=== PATIENT | female | born 1980 | race Hispanic/Latino ===

== ENCOUNTER 2018-07-12 10:38 | Emergency (ER) | payer BC ==
[~2018-07-12 10:38] MED LIST: AMPH25CA PO; GABA-529 PO; METO25TA6 PO
[2018-07-12] MEDS ORDERED: IOHEXOL 350 MG/ML 100ML INFUS..BTL IV ONE (11:16)
[2018-07-12] MEDS ORDERED: ONDANSETRON HCL 4 MG/2 ML VIAL ONE (11:21)
[2018-07-12] MEDS ORDERED: SODIUM CHLORIDE 0.9% 1000ML 1,000 ML IV ONE (11:21)
[2018-07-12] MEDS ORDERED: KETOROLAC TROMETHAMINE 15MG/ML ONE ×2 (11:21→12:21)
[2018-07-12 11:35] LABS: CREATININE 0.8 mg/dL (0.5-1.5); POTASSIUM 3.9 mmol/L (3.5-5.1)
[2018-07-12 11:40] LABS: BASOPHILS % (AUTO) 0.5 % (0.0-5.0); EOSINOPHILS % (AUTO) 0.6 % (0.0-8.0); HEMATOCRIT 37.8 % (36-48); MEAN CORPUSCULAR HGB CONC 33.4 g/dL (32.0-36.0); MEAN CORPUSCULAR VOLUME 86.7 fL (79-99); MONOCYTES % (AUTO) 5.4 % (3.0-13.0); NEUTROPHILS % (AUTO) 74.5 % (40.0-77.0); PLATELET COUNT (AUTO) 245 K/uL (130-400); RED BLOOD CELL COUNT(AUTO) 4.36 MIL/uL (4.00-5.50); RED CELL DISTRIBUTION WIDTH 13.9 % (11.0-15.5); WHITE BLOOD COUNT (AUTO) 8.6 K/uL (4.8-10.8)
[2018-07-12 11:42] LABS: APPEARANCE,URINE Clear (CLEAR); BILIRUBIN,URINE Negative (NEGATIVE); COLOR,URINE Yellow (YELLOW); GLUCOSE, URINE (UA) Negative (NEGATIVE); KETONES,URINE Negative (NEGATIVE); LEUKOCYTE ESTERASE ,URINE Small (NEGATIVE); NITRATE,URINE Negative (NEGATIVE); OCCULT BLOOD,URINE Trace (NEGATIVE); PROTEIN,URINE Negative (NEGATIVE); UROBILINOGEN,URINE 0.2 mg/dL (0.2-1.0)
[2018-07-12 11:44] LABS: ALBUMIN 3.5 g/dL (3.5-5.0); BILIRUBIN,TOTAL 0.4 mg/dL (0.2-1.0); TOTAL PROTEIN, SERUM 7.2 g/dL (6.0-8.3)
[2018-07-12 12:00] LABS: BACTERIA,URINE Rare /HPF (None Seen); RBC,URINE 0-1 /HPF (0-1); SQUAMOUS EPITHELIAL CELL,UR Rare /HPF (0-2)
[2018-07-12] MEDS ORDERED: DiphenhydrAMINE HCL 50 MG/ML VIAL ONE (12:20)
[2018-07-12] MEDS ORDERED: PROCHLORPERAZINE EDISYLATE 10 MG/2 ML VIAL ONE (12:21)
[2018-07-16] MEDS ORDERED: METO25TA6 PO (16:59)
[2018-07-16] MEDS ORDERED: PHENERGAN PO (16:59)
[2018-07-16] MEDS ORDERED: LOSA50TA25 PO (16:59)
== END 2018-07-12 13:55 | disposition home or self-care (01) ==
LOC: EDH 10:38
DX: R10.32 Left lower quadrant pain (principal); R11.2 Nausea with vomiting, unspecified; I10 Essential (primary) hypertension; Z90.49 Acquired absence of other specified parts of digestive tract; Z98.890 Other specified postprocedural states
CPT/HCPCS: 36415; 74177; 80053; 81001; 81025; 83690; 85025; 96361; 96374; 96375; 96376; 99285; J0780; J1200; J1885 ×2; J2405; J7030; Q9967

== ENCOUNTER 2018-07-17 06:35 | Day surgery (SDC) | payer BC ==
[2018-07-16 16:41] VITALS: BP 98/59
[2018-07-16 16:48] LABS: BASOPHILS % (AUTO) 0.6 % (0.0-5.0); EOSINOPHILS % (AUTO) 0.7 % (0.0-8.0); HEMATOCRIT 40.2 % (36-48); LYMPHOCYTES % (AUTO) 25.5 % (21.0-51.0); MEAN CORPUSCULAR HEMOGLOBIN 29.5 pg (27.0-33.0); MEAN CORPUSCULAR HGB CONC 33.6 g/dL (32.0-36.0); MEAN CORPUSCULAR VOLUME 87.7 fL (79-99); NEUTROPHILS % (AUTO) 66.2 % (40.0-77.0); PLATELET COUNT (AUTO) 298 K/uL (130-400); RED BLOOD CELL COUNT(AUTO) 4.59 MIL/uL (4.00-5.50); WHITE BLOOD COUNT (AUTO) 8.2 K/uL (4.8-10.8)
[2018-07-17] VITALS (19 sets, daily range): BP systolic 95–124; BP diastolic 52–74
[~2018-07-17] VITALS: Ht 160 cm; Wt 78.8 kg
[2018-07-17] MEDS: CEFAZOLIN SODIUM 1 GM VIAL IVP SCH ×2 (06:00→08:03)
[~2018-07-17 06:35] MED LIST changes: -AMPH25CA PO; -GABA-529 PO; +LACTATED RINGERS 1000ML 1,000 ML IV SCH; +LOSA50TA25 PO; +PHENERGAN PO
[2018-07-17] MEDS ORDERED: LIDOCAINE PF 2% 5ML ABBOJECT ONE (06:44)
[2018-07-17] MEDS ORDERED: ONDANSETRON HCL 4 MG/2 ML VIAL ONE (06:44)
[2018-07-17] MEDS ORDERED: MIDAZOLAM HCL 1 MG/ML 2ML VIAL ONE (06:44)
[2018-07-17] MEDS ORDERED: PROPOFOL 10 MG/ML 20ML VIAL IV ONE (06:44)
[2018-07-17] MEDS ORDERED: GLYCOPYRROLATE 1 MG/5 ML SYRINGE ONE (06:44)
[2018-07-17] MEDS ORDERED: KETOROLAC TROMETHAMINE 30MG/ML ONE ×2 (06:45→09:33)
[2018-07-17] MEDS ORDERED: FENTANYL CITRATE PF 50 MCG/1 ML 2ML VIAL ONE (06:45)
[2018-07-17] MEDS ORDERED: NEOSTIGMINE 5MG/5ML SYR IV ONE (06:45)
[2018-07-17] MEDS ORDERED: ROCURONIUM 10MG/1ML SYR 10 MG/ML ML ONE (06:45)
[2018-07-17] MEDS ORDERED: DEXAMETHASONE SOD PHOSPHATE 10MG/ML 1ML VIAL ONE (06:45)
[2018-07-17] MEDS ORDERED: FAMOTIDINE/PF 20 MG/2 ML VIAL IV ONE (06:56)
[2018-07-17] MEDS ORDERED: KETAMINE 50MG/ML SYRINGE 50 MG/ML DISP.SYRIN IV ONE (06:57)
[2018-07-17] MEDS ORDERED: DOXY100C2 PO (07:23)
[2018-07-17] MEDS ORDERED: METR500T4 PO (07:23)
[2018-07-17] MEDS ORDERED: BUPIVACAINE/PF 0.25% 50ML VIAL IJ ONE ×2 (07:26→07:28)
[2018-07-17] MEDS ORDERED: PHENYLEPHRINE HCL 10 MG/ML 1ML VIAL IV ONE (08:05)
[2018-07-17] MEDS ORDERED: ONDANSETRON HCL MDV 20ML 2 MG/ML VIAL IVP SCH (10:00)
== END 2018-07-17 11:07 | disposition home or self-care (01) ==
LOC: DAH 06:35
PROVIDERS: ATTEND Obstetrics & Gynecology
DX: R10.30 Lower abdominal pain, unspecified (principal); K66.0 Peritoneal adhesions (postprocedural) (postinfection); I10 Essential (primary) hypertension; Z90.49 Acquired absence of other specified parts of digestive tract; Z98.51 Tubal ligation status; Z98.890 Other specified postprocedural states; Z79.899 Other long term (current) drug therapy; Z83.3 Family history of diabetes mellitus; Z82.49 Family history of ischemic heart disease and other diseases of the circulatory system
CPT/HCPCS: 36415; 58660; 84702; 85025; 86850; 86900; 86901; A4344; A4510; A4600; A4649; C1769 ×2; J0690; J1100; J1885 ×2; J2001; J2250; J2370; J2405; J2704; J2710; J3010; J3490 ×5; J7120 ×2

== ENCOUNTER 2019-10-22 22:37 | Emergency (ER) | payer BC ==
[~2019-10-22 22:37] MED LIST changes: -LACTATED RINGERS 1000ML 1,000 ML IV SCH; -LOSA50TA25 PO; +LOSA50TA64 PO; -PHENERGAN PO
[2019-10-22] MEDS ORDERED: SODIUM CHLORIDE 0.9% 1000ML 1,000 ML IV ONE (23:15)
[2019-10-22 23:20] LABS: BASOPHILS % (AUTO) 0.3 % (0.0-5.0); EOSINOPHILS % (AUTO) 1.1 % (0.0-8.0); LYMPHOCYTES % (AUTO) 27.9 % (21.0-51.0); MEAN CORPUSCULAR HGB CONC 33.8 g/dL (32.0-36.0); MEAN CORPUSCULAR VOLUME 85.7 fL (79-99); MONOCYTES % (AUTO) 6.3 % (3.0-13.0); NEUTROPHILS % (AUTO) 64.1 % (40.0-77.0); PLATELET COUNT (AUTO) 366 K/uL (130-400); RED BLOOD CELL COUNT(AUTO) 4.55 MIL/uL (4.00-5.50); RED CELL DISTRIBUTION WIDTH 13.7 % (11.0-15.5); WHITE BLOOD COUNT (AUTO) 10.3 K/uL (4.8-10.8)
[2019-10-22 23:32] LABS: CREATININE 0.8 mg/dL (0.5-1.5); POTASSIUM 3.8 mmol/L (3.5-5.1)
[2019-10-22 23:35] LABS: INR 1.03 (0.85-1.15); PARTIAL THROMBOPLASTIN TIME 28.4 SEC (26.3-35.5); PROTHROMBIN TIME 10.8 SEC (9.6-11.6)
[2019-10-22 23:45] LABS: ALBUMIN 3.6 g/dL (3.5-5.0); BILIRUBIN,TOTAL 0.3 mg/dL (0.2-1.0); THYROID STIMULATING HORMONE 3.12 uIU/mL (0.36-3.74); TOTAL PROTEIN, SERUM 7.4 g/dL (6.0-8.3)
[2019-10-22] MEDS ORDERED: METOCLOPRAMIDE 10 MG/2 ML VIAL ONE (23:59)
[2019-10-23] MEDS ORDERED: ONDANSETRON HCL 4 MG/2 ML VIAL ONE
== END 2019-10-23 01:36 | disposition home or self-care (01) ==
LOC: EDH 22:37
DX: R00.2 Palpitations (principal); E86.9 Volume depletion, unspecified; H81.10 Benign paroxysmal vertigo, unspecified ear; Z91.018 Allergy to other foods; I10 Essential (primary) hypertension; Z90.49 Acquired absence of other specified parts of digestive tract; Z90.710 Acquired absence of both cervix and uterus
CPT/HCPCS: 36415; 71045; 80053; 82550; 84443; 84484; 85025; 85610; 85730; 93005; 96361; 96374; 96375; 99285; J2405; J2765; J7030

== ENCOUNTER 2021-01-30 03:13 | Emergency (ER) | payer BC ==
[2021-01-30 03:38] LABS: APPEARANCE,URINE Clear (CLEAR); BILIRUBIN,URINE Negative (NEGATIVE); COLOR,URINE Yellow (YELLOW); GLUCOSE, URINE (UA) Negative (NEGATIVE); KETONES,URINE Trace mg/dL (NEGATIVE); LEUKOCYTE ESTERASE ,URINE Negative (NEGATIVE); NITRATE,URINE Negative (NEGATIVE); OCCULT BLOOD,URINE Negative (NEGATIVE); PROTEIN,URINE Negative (NEGATIVE)
[2021-01-30] MEDS ORDERED: KETOROLAC TROMETHAMINE 30MG/ML ONE (03:41)
[2021-01-30] MEDS ORDERED: ONDANSETRON HCL 4 MG/2 ML VIAL ONE (03:41)
[2021-01-30 03:42] LABS: BASOPHILS % (AUTO) 0.3 % (0.0-5.0); EOSINOPHILS % (AUTO) 0.4 % (0.0-8.0); HEMATOCRIT 41.8 % (36-48); LYMPHOCYTES % (AUTO) 15.8 % (21.0-51.0); MEAN CORPUSCULAR HEMOGLOBIN 29.7 pg (27.0-33.0); MEAN CORPUSCULAR HGB CONC 34.7 g/dL (32.0-36.0); MEAN CORPUSCULAR VOLUME 85.7 fL (79-99); MONOCYTES % (AUTO) 4.2 % (3.0-13.0); NEUTROPHILS % (AUTO) 79.1 % (40.0-77.0); PLATELET COUNT (AUTO) 366 K/uL (130-400); RED BLOOD CELL COUNT(AUTO) 4.88 MIL/uL (4.00-5.50); RED CELL DISTRIBUTION WIDTH 13.2 % (11.0-15.5); WHITE BLOOD COUNT (AUTO) 12.1 K/uL (4.8-10.8)
[2021-01-30 03:51] LABS: CREATININE 0.9 mg/dL (0.5-1.5); POTASSIUM 3.9 mmol/L (3.5-5.1)
[2021-01-30 03:53] LABS: ALBUMIN 4.1 g/dL (3.5-5.0); BILIRUBIN,TOTAL 0.3 mg/dL (0.2-1.0); TOTAL PROTEIN, SERUM 7.8 g/dL (6.0-8.3)
[2021-01-30] MEDS ORDERED: MORPHINE SULFATE 4 MG/1ML SYG ONE (05:08)
== END 2021-01-30 06:13 | disposition home or self-care (01) ==
LOC: EDH 03:13
DX: K52.9 Noninfective gastroenteritis and colitis, unspecified (principal); I10 Essential (primary) hypertension; Z90.49 Acquired absence of other specified parts of digestive tract; Z90.710 Acquired absence of both cervix and uterus; Z91.018 Allergy to other foods
CPT/HCPCS: 36415; 74176; 80053; 81003; 83690; 85025; 96374; 96375; 99284; J1885; J2270; J2405

== ENCOUNTER 2021-01-31 17:09 | Inpatient (IN) | payer BC ==
[~2021-01-31] VITALS: Ht 160 cm; Wt 78.6 kg
[2021-01-31] MEDS ORDERED: ONDANSETRON 4MG INJ ONE (17:42)
[2021-01-31] MEDS ORDERED: METRONIDAZOLE 500MG/100ML BAG 100 ML ONE (17:42)
[2021-01-31] MEDS ORDERED: CEFTRIAXONE 1G VIAL ONE (17:43)
[2021-01-31] MEDS ORDERED: 1/2 NS 1000ML 1,000 ML IV ONE (17:43)
[2021-01-31] MEDS ORDERED: MORPHINE 4 MG SYG ONE (17:43)
[2021-01-31] MEDS ORDERED: DEXTROSE 5 %-0.45 % NACL 1,000 ML IV ONE (18:01)
[2021-01-31 18:08] LABS: CREATININE 0.7 mg/dL (0.5-1.5); POTASSIUM 3.7 mmol/L (3.5-5.1)
[2021-01-31 18:12] LABS: ALBUMIN 3.6 g/dL (3.5-5.0); BILIRUBIN,DIRECT 0.1 mg/dL (0.0-0.3); BILIRUBIN,TOTAL 0.3 mg/dL (0.2-1.0); TOTAL PROTEIN, SERUM 7.1 g/dL (6.0-8.3)
[2021-01-31 18:23] LABS: BASOPHILS % (AUTO) 0.6 % (0.0-5.0); EOSINOPHILS % (AUTO) 2.1 % (0.0-8.0); HEMATOCRIT 37.1 % (36-48); LYMPHOCYTES % (AUTO) 29.7 % (21.0-51.0); MEAN CORPUSCULAR HEMOGLOBIN 30.4 pg (27.0-33.0); MEAN CORPUSCULAR HGB CONC 34.8 g/dL (32.0-36.0); MEAN CORPUSCULAR VOLUME 87.3 fL (79-99); MONOCYTES % (AUTO) 5.2 % (3.0-13.0); NEUTROPHILS % (AUTO) 62.1 % (40.0-77.0); PLATELET COUNT (AUTO) 316 K/uL (130-400); RED BLOOD CELL COUNT(AUTO) 4.25 MIL/uL (4.00-5.50); RED CELL DISTRIBUTION WIDTH 13.5 % (11.0-15.5)
[2021-01-31 23:40] VITALS: BP 135/79
[2021-02-01] MEDS ORDERED: ONDANSETRON 4MG INJ ONE (00:08)
[2021-02-01] MEDS ORDERED: MORPHINE 4 MG SYG ONE (00:09)
[2021-02-01] MEDS ORDERED: DEXTROSE 5 %-0.45 % NACL 1,000 ML IV SCH (01:00)
[2021-02-01] MEDS ORDERED: ONDANSETRON 4MG INJ IVP PRN ×2 (01:00)
[2021-02-01] MEDS ORDERED: MORPHINE 4 MG SYG IV PRN (01:00)
[2021-02-01] MEDS ORDERED: DIPHENHYDRAMINE HCL 25 MG CAPSULE PO PRN ×2 (01:00)
[2021-02-01] MEDS: DEXTROSE 5 %-0.45 % NACL 1,000 ML IV SCH ×4 (01:00→22:59)
[2021-02-01] MEDS: METRONIDAZOLE 500MG/100ML BAG 100 ML IVPB SCH ×3 (02:05→17:25)
[2021-02-01 03:03] VITALS: BP 111/65
[2021-02-01 04:39] LABS: HEMATOCRIT 34.7 % (36-48); MEAN CORPUSCULAR HEMOGLOBIN 28.9 pg (27.0-33.0); MEAN CORPUSCULAR HGB CONC 33.1 g/dL (32.0-36.0); MEAN CORPUSCULAR VOLUME 87.2 fL (79-99); RED BLOOD CELL COUNT(AUTO) 3.98 MIL/uL (4.00-5.50); RED CELL DISTRIBUTION WIDTH 13.2 % (11.0-15.5); WHITE BLOOD COUNT (AUTO) 6.7 K/uL (4.8-10.8)
[2021-02-01 05:09] LABS: ALBUMIN 3.1 g/dL (3.5-5.0); BILIRUBIN,DIRECT 0.2 mg/dL (0.0-0.3); BILIRUBIN,TOTAL 0.4 mg/dL (0.2-1.0); CREATININE 0.7 mg/dL (0.5-1.5); POTASSIUM 3.8 mmol/L (3.5-5.1); TOTAL PROTEIN, SERUM 6.3 g/dL (6.0-8.3)
[2021-02-01] MEDS ORDERED: METRONIDAZOLE 500MG/100ML BAG 100 ML IVPB SCH (06:00)
[2021-02-01 07:30] VITALS: BP 103/66
[2021-02-01] MEDS: MORPHINE 4 MG SYG IVP PRN ×3 (08:04→23:07)
[2021-02-01] MEDS: ONDANSETRON 4MG INJ IVP PRN ×3 (08:26→22:59)
[2021-02-01] MEDS ORDERED: PANTOPRAZOLE 40 MG/VIAL IVP SCH (09:00)
[2021-02-01] MEDS: PANTOPRAZOLE 40 MG/VIAL IVP SCH (09:55)
[2021-02-01] MEDS: ENOXAPARIN SODIUM 40 MG/0.4 ML SYRINGE SQ SCH (09:56)
[2021-02-01 12:00] VITALS: BP 105/67
[2021-02-01] MEDS ORDERED: PEG 3350/NA SULF,BICARB,CL/KCL 4000 ML SOLN PO SCH (15:45)
[2021-02-01 16:00] VITALS: BP 101/74
[2021-02-01] MEDS: CEFTRIAXONE 1G VIAL IVP SCH (16:51)
[2021-02-01] MEDS ORDERED: CEFTRIAXONE 1G VIAL IVP SCH (17:00)
[2021-02-01 19:58] VITALS: BP 120/83
[2021-02-01 23:17] VITALS: BP 114/76
[2021-02-02] MEDS: METRONIDAZOLE 500MG/100ML BAG 100 ML IVPB SCH ×3 (02:32→18:08)
[2021-02-02 03:48] VITALS: BP 94/62
[2021-02-02 05:06] LABS: BASOPHILS % (AUTO) 0.5 % (0.0-5.0); EOSINOPHILS % (AUTO) 1.3 % (0.0-8.0); HEMATOCRIT 33.4 % (36-48); LYMPHOCYTES % (AUTO) 34.8 % (21.0-51.0); MEAN CORPUSCULAR HEMOGLOBIN 29.1 pg (27.0-33.0); MEAN CORPUSCULAR HGB CONC 33.2 g/dL (32.0-36.0); MEAN CORPUSCULAR VOLUME 87.7 fL (79-99); NEUTROPHILS % (AUTO) 56.1 % (40.0-77.0); PLATELET COUNT (AUTO) 281 K/uL (130-400); RED BLOOD CELL COUNT(AUTO) 3.81 MIL/uL (4.00-5.50); RED CELL DISTRIBUTION WIDTH 13.2 % (11.0-15.5)
[2021-02-02 05:27] LABS: BILIRUBIN,TOTAL 0.3 mg/dL (0.2-1.0); CREATININE 0.7 mg/dL (0.5-1.5); POTASSIUM 3.3 mmol/L (3.5-5.1); TOTAL PROTEIN, SERUM 5.9 g/dL (6.0-8.3)
[2021-02-02 08:35] VITALS: BP 112/80
[2021-02-02] MEDS: PANTOPRAZOLE 40 MG/VIAL IVP SCH (09:45)
[2021-02-02] MEDS: ENOXAPARIN SODIUM 40 MG/0.4 ML SYRINGE SQ SCH (09:48)
[2021-02-02] MEDS: DEXTROSE 5 %-0.45 % NACL 1,000 ML IV SCH ×4 (10:20→20:26)
[2021-02-02 12:06] VITALS: BP 92/60
[2021-02-02] MEDS: CEFTRIAXONE 1G VIAL IVP SCH (17:13)
[2021-02-02 17:19] VITALS: BP 161/57
[2021-02-02 17:23] VITALS: BP 133/90
[2021-02-02 20:00] VITALS: BP 116/78
[2021-02-02] MEDS: ONDANSETRON 4MG INJ IVP PRN (20:21)
[2021-02-03] VITALS (14 sets, daily range): BP systolic 96–129; BP diastolic 57–84
[2021-02-03] MEDS: METRONIDAZOLE 500MG/100ML BAG 100 ML IVPB SCH ×2 (01:31→10:01)
[2021-02-03] MEDS: DEXTROSE 5 %-0.45 % NACL 1,000 ML IV SCH (05:09)
[2021-02-03 05:24] LABS: BASOPHILS % (AUTO) 0.3 % (0.0-5.0); HEMATOCRIT 33.5 % (36-48); LYMPHOCYTES % (AUTO) 38.7 % (21.0-51.0); MEAN CORPUSCULAR HEMOGLOBIN 29.2 pg (27.0-33.0); MEAN CORPUSCULAR VOLUME 85.9 fL (79-99); MONOCYTES % (AUTO) 6.4 % (3.0-13.0); NEUTROPHILS % (AUTO) 53.4 % (40.0-77.0); PLATELET COUNT (AUTO) 285 K/uL (130-400); RED CELL DISTRIBUTION WIDTH 13.1 % (11.0-15.5); WHITE BLOOD COUNT (AUTO) 5.8 K/uL (4.8-10.8)
[2021-02-03 05:55] LABS: ALBUMIN 3.1 g/dL (3.5-5.0); BILIRUBIN,TOTAL 0.3 mg/dL (0.2-1.0); CREATININE 0.7 mg/dL (0.5-1.5); POTASSIUM 3.3 mmol/L (3.5-5.1)
[2021-02-03] MEDS ORDERED: PROPOFOL 10 MG/ML 20ML VIAL IV ONE ×2 (08:49)
[2021-02-03] MEDS: PANTOPRAZOLE 40 MG/VIAL IVP SCH (10:01)
[2021-02-03] MEDS: ENOXAPARIN SODIUM 40 MG/0.4 ML SYRINGE SQ SCH (10:02)
== END 2021-02-03 19:05 | disposition home or self-care (01) | DRG 392 ==
LOC: EDH 17:09 → EDHIP 17:28 → UNDOADMIN 17:51 → EDHIP 17:51 → 3CH 23:39
PROVIDERS: ADMIT Internal Medicine; ATTEND Internal Medicine
PROC: 0DBP8ZZ Excision of Rectum, Via Natural or Artificial Opening Endoscopic (ICD-10-PCS; principal; 2021-02-03)
DX: K57.92 Diverticulitis of intestine, part unspecified, without perforation or abscess without bleeding (principal); K29.70 Gastritis, unspecified, without bleeding; E86.0 Dehydration; D64.9 Anemia, unspecified; I10 Essential (primary) hypertension; K59.00 Constipation, unspecified; G43.909 Migraine, unspecified, not intractable, without status migrainosus; K21.9 Gastro-esophageal reflux disease without esophagitis; R16.0 Hepatomegaly, not elsewhere classified; Z20.822 Contact with and (suspected) exposure to COVID-19; Z88.8 Allergy status to other drugs, medicaments and biological substances
CPT/HCPCS: 36415; 45380; 74176; 80048; 80053; 80076; 82150; 83690; 85025; 85027; 87426; 87804; A4606; C9113; G0378; J0696; J1650; J2270; J2405; J2704; J3490; J7030; J7042; U0003

== ENCOUNTER → 2022-07-17 | Outpatient (CLI) | payer BC ==
[2022-07-22 15:12] LABS: VARICELLA IGM ANTIBODY <0.91 index (0.00-0.90)
== END | disposition home or self-care (01) ==
LOC: LAB 09:15
PROVIDERS: ATTEND Internal Medicine Cardiovascular Disease
DX: Z01.84 Encounter for antibody response examination (principal)
CPT/HCPCS: 36415; 86787

== ENCOUNTER → 2022-10-10 | Outpatient (CLI) | payer BC ==
[2022-10-10 13:12] LABS: BASOPHILS % (AUTO) 0.6 % (0.0-5.0); EOSINOPHILS % (AUTO) 1.1 % (0.0-8.0); HEMATOCRIT 37.1 % (36-48); LYMPHOCYTES % (AUTO) 33.4 % (21.0-51.0); MEAN CORPUSCULAR HEMOGLOBIN 29.9 pg (27.0-33.0); MEAN CORPUSCULAR VOLUME 87.9 fL (79-99); MONOCYTES % (AUTO) 5.2 % (3.0-13.0); NEUTROPHILS % (AUTO) 59.4 % (40.0-77.0); PLATELET COUNT (AUTO) 389 K/uL (130-400); RED BLOOD CELL COUNT(AUTO) 4.22 MIL/uL (4.00-5.50); RED CELL DISTRIBUTION WIDTH 13.4 % (11.0-15.5); WHITE BLOOD COUNT (AUTO) 7.2 K/uL (4.8-10.8)
[2022-10-10 13:19] LABS: HEMOGLOBIN A1C 5.4 % (4.0-6.0)
[2022-10-10 13:29] LABS: ALBUMIN 3.6 g/dL (3.5-5.0); CREATININE 0.7 mg/dL (0.5-1.5); POTASSIUM 4.3 mmol/L (3.5-5.1); THYROID STIMULATING HORMONE 3.69 uIU/mL (0.36-3.74); TOTAL PROTEIN, SERUM 7.2 g/dL (6.0-8.3)
== END | disposition home or self-care (01) ==
LOC: LAB 08:33
PROVIDERS: ATTEND Internal Medicine Cardiovascular Disease
DX: I10 Essential (primary) hypertension (principal); R00.2 Palpitations
CPT/HCPCS: 36415; 80053; 80061; 83036; 84439; 84443; 85025

== ENCOUNTER → 2023-02-24 | Outpatient (CLI) | payer BC ==
[2023-02-24 11:57] LABS: BASOPHILS % (AUTO) 0.5 % (0.0-5.0); EOSINOPHILS % (AUTO) 1.2 % (0.0-8.0); HEMATOCRIT 39.7 % (36-48); LYMPHOCYTES % (AUTO) 29.2 % (21.0-51.0); MEAN CORPUSCULAR HEMOGLOBIN 29.7 pg (27.0-33.0); MEAN CORPUSCULAR HGB CONC 33.5 g/dL (32.0-36.0); MEAN CORPUSCULAR VOLUME 88.6 fL (79-99); MONOCYTES % (AUTO) 5.5 % (3.0-13.0); NEUTROPHILS % (AUTO) 63.3 % (40.0-77.0); PLATELET COUNT (AUTO) 347 K/uL (130-400); RED BLOOD CELL COUNT(AUTO) 4.48 MIL/uL (4.00-5.50); RED CELL DISTRIBUTION WIDTH 13.6 % (11.0-15.5); WHITE BLOOD COUNT (AUTO) 7.8 K/uL (4.8-10.8)
[2023-02-24 12:27] LABS: ALBUMIN 3.7 g/dL (3.5-5.0); CREATININE 0.7 mg/dL (0.5-1.5); THYROID STIMULATING HORMONE 2.63 uIU/mL (0.36-3.74); TOTAL PROTEIN, SERUM 7.3 g/dL (6.0-8.3)
== END | disposition home or self-care (01) ==
LOC: LAB 08:29
PROVIDERS: ATTEND Internal Medicine Cardiovascular Disease
DX: I10 Essential (primary) hypertension (principal); R00.2 Palpitations; R00.0 Tachycardia, unspecified
CPT/HCPCS: 36415; 80053; 80061; 84443; 85025

== ENCOUNTER → 2023-06-12 | Outpatient (CLI) | payer BC ==
[2023-06-12 12:39] LABS: BASOPHILS # (AUTO) 0.04 K/uL (0.00-0.20); BASOPHILS % (AUTO) 0.5 % (0.0-5.0); EOSINOPHILS # (AUTO) 0.08 K/uL (0.00-0.70); EOSINOPHILS % (AUTO) 1.1 % (0.0-8.0); HEMATOCRIT 38.8 % (36-48); IMMATURE GRANULOCYTE ABSOLUTE 0.02 K/uL (0-1); LYMPHOCYTES # (AUTO) 2.2 K/uL (1.0-4.8); LYMPHOCYTES % (AUTO) 29.1 % (21.0-51.0); MEAN CORPUSCULAR HGB CONC 33.5 g/dL (32.0-36.0); MEAN CORPUSCULAR VOLUME 89.4 fL (79-99); MONOCYTES # (AUTO) 0.4 K/uL (0.1-1.0); MONOCYTES % (AUTO) 4.6 % (3.0-13.0); NEUTROPHILS # (AUTO) 4.9 K/uL (1.8-7.7); NEUTROPHILS % (AUTO) 64.4 % (40.0-77.0); PLATELET COUNT (AUTO) 322 K/uL (130-400); RED BLOOD CELL COUNT(AUTO) 4.34 MIL/uL (4.00-5.50); RED CELL DISTRIBUTION WIDTH 13.8 % (11.0-15.5); WHITE BLOOD COUNT (AUTO) 7.6 K/uL (4.8-10.8)
[2023-06-12 13:01] LABS: HEMOGLOBIN A1C 5.2 % (4.0-6.0)
[2023-06-12 13:03] LABS: ALBUMIN 3.7 g/dL (3.5-5.0); BILIRUBIN,TOTAL 0.5 mg/dL (0.2-1.0); CREATININE 0.6 mg/dL (0.5-1.5); POTASSIUM 3.8 mmol/L (3.5-5.1); THYROID STIMULATING HORMONE 2.54 uIU/mL (0.36-3.74); TOTAL PROTEIN, SERUM 7.2 g/dL (6.0-8.3)
== END | disposition home or self-care (01) ==
LOC: LAB 08:51
PROVIDERS: ATTEND Internal Medicine Cardiovascular Disease
DX: R00.2 Palpitations (principal); E66.9 Obesity, unspecified
CPT/HCPCS: 36415; 80053; 80061; 83036; 84443; 85025

== ENCOUNTER → 2024-07-06 | Outpatient (CLI) | payer BC ==
[2024-07-06 12:30] LABS: BASOPHILS # (AUTO) 0.04 K/uL (0.00-0.20); BASOPHILS % (AUTO) 0.6 % (0.0-5.0); EOSINOPHILS # (AUTO) 0.07 K/uL (0.00-0.70); HEMATOCRIT 37.5 % (36-48); IMMATURE GRANULOCYTE ABSOLUTE 0.02 K/uL (0-1); LYMPHOCYTES # (AUTO) 2.1 K/uL (1.0-4.8); LYMPHOCYTES % (AUTO) 29.6 % (21.0-51.0); MEAN CORPUSCULAR HEMOGLOBIN 30.2 pg (27.0-33.0); MEAN CORPUSCULAR HGB CONC 34.4 g/dL (32.0-36.0); MEAN CORPUSCULAR VOLUME 87.8 fL (79-99); MONOCYTES # (AUTO) 0.4 K/uL (0.1-1.0); MONOCYTES % (AUTO) 5.2 % (3.0-13.0); NEUTROPHILS # (AUTO) 4.4 K/uL (1.8-7.7); NEUTROPHILS % (AUTO) 63.3 % (40.0-77.0); PLATELET COUNT (AUTO) 277 K/uL (130-400); RED BLOOD CELL COUNT(AUTO) 4.27 MIL/uL (4.00-5.50); RED CELL DISTRIBUTION WIDTH 13.5 % (11.0-15.5); WHITE BLOOD COUNT (AUTO) 6.9 K/uL (4.8-10.8)
[2024-07-06 12:45] LABS: HEMOGLOBIN A1C 5.2 % (4.0-6.0)
[2024-07-06 13:03] LABS: ALBUMIN 3.5 g/dL (3.5-5.0); BILIRUBIN,TOTAL 0.4 mg/dL (0.2-1.0); CREATININE 0.7 mg/dL (0.5-1.0); POTASSIUM 3.6 mmol/L (3.5-5.1); TOTAL PROTEIN, SERUM 6.9 g/dL (6.0-8.3)
== END | disposition home or self-care (01) ==
LOC: LAB 08:48
PROVIDERS: ATTEND Internal Medicine Cardiovascular Disease
DX: I10 Essential (primary) hypertension (principal); R00.2 Palpitations; R53.83 Other fatigue; E78.5 Hyperlipidemia, unspecified
CPT/HCPCS: 36415; 80053; 80061; 83036; 83735; 84436; 84443; 84479; 85025

== ENCOUNTER 2024-12-30 05:00 | Observation (INO) | payer BC ==
[~2024-12-30] VITALS: Ht 160 cm; Wt 73.9 kg
--- NOTE | 2024-12-30 05:14 | ERN ---
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 She has a known history of venous reflux and iliac vein stent placed in the past. The pain was so worse that she could not sleep and came into the ER for further evaluation. No shortness of breath palpitations or tachycardia. No fall or injury to the left leg. She stated that the pain in the left leg was so intense that even touching the skin hurts her No discoloration ecchymosis. Pain extends in the lower leg. She stated that she took anticoagulation for 3 months after the stent in left iliac vein was placed. Temperature 98.6 pulse 70 respirations 20 blood pressure 129/80 with a pulse oximetry of 100% on room air Her chronic medical problems include hypertension, gastroesophageal reflux, migraines and history of eye iliac vein stent on the left. Allergies: Coded Allergies: No Known Drug Allergies (Verified Allergy, Unknown, 08/27/18) pineapple (Unverified Allergy, Unknown, 08/27/18) Home Meds Reported Medications Losartan Potassium (Losartan Potassium) 50 Mg Tablet, 50 MG PO DAILY, TAB 07/16/18 Metoprolol Tartrate (Metoprolol Tartrate) 25 Mg Tablet, 12.5 MG PO DAILY, TAB 07/16/18 Metoprolol Tartrate (Metoprolol Tartrate) 25 Mg Tablet, 25 MG PO HS, TAB 03/06/16 Past Medical History Past Medical History: Hypertension Surgical History: Other Surgical History Other: [facility] STENT 2021 Family History: Negative Social History: Negative RN Note Reviewed/Agreed w/PFSH: Yes Review of System Dictation Constitutional: Negative for fever,chills, and weight loss Eyes: Negative for injury, pain,redness, and discharge ENT: Negative for injury,pain or swelling Cardiovascular: Negative for chest pain, palpitations, and edema Respiratory: Negative for shortness of breath, cough, and wheezing, Abdomen/GI: Negative for abdominal pain, nausea, vomiting, diarrhea, and constipation Back: Negative for injury and pain : Negative for injury, bleeding and discharge MS/Extremity: Negative for injury and deformity positive for left lower extrem ity pain Skin: Negative for rash, and discoloration Neuro: Negative for headache, weakness, numbness, tingling, and seizure Psych: Negative for suicide ideation, homicidal ideation, and hallucinations Initial Vital Sign VS Vital Signs Date Time Temp Pulse Resp B/P (MAP) Pulse Ox O2 Delivery O2 Flow Rate FiO2 12/30/24 05:01 98.6 70 20 129/80 100 12/30/24 05:28 Room Air* 0 21 Physical Exam Dictation General: awake, alert, NAD Head/Face: Normocephalic, atraumatic Eyes: PERRL, EOMI, vision at baseline ENT: oral cavity clear, TMs clear, no signs of infection Neck: Trachea midline, supple, no nuchal rigidity Cardiovascular: RRR, normal S1/S2, No MRGs, no JVD Respiratory: CTAB, no respiratory distress, No rales or wheezes Abdomen: Soft, non-tender, non-distended, normal bowel sounds, no guarding or rebound. Skin: Warm, dry, normal turgor, no rash MS/Extremity: Pulses equal, no cyanosis, neurovascular intact, FROM tenderness on movement of the left lower extremity. Neuro: COAx4, GCS 15, strength 5/5, CN 2-12 intact, normal cerebellar exam, normal gait, Psych: Normal behavior, mood, and affect normal Extremities-trace edema without any palpable cords Results (Laboratory/Radiology) Laboratory/Radiology Laboratory Tests Test 12/30/24 05:26 12/30/24 07:08 White Blood Count 6.7 K/uL (4.8-10.8) Red Blood Count 4.39 MIL/uL (4.00-5.50) Hemoglobin 13.0 g/dL (12.0-16.0) Hematocrit 38.2 % (36-48) Mean Corpuscular Volume 87.0 fL (79-99) Mean Corpuscular Hemoglobin 29.6 pg (27.0-33.0) Mean Corpuscular Hemoglobin Concent 34.0 g/dL (32.0-36.0) Red Cell Distribution Width 13.2 % (11.0-15.5) Platelet Count 288 K/uL (130-400) Mean Platelet Volume 10.4 fL (7.5-10.5) Immature Granulocyte % (Auto) 0.3 % (0-1) Neutrophils (%) (Auto) 59.3 % (40.0-77.0) Lymphocytes (%) (Auto) 32.1 % (21.0-51.0) Monocytes (%) (Auto) 6.4 % (3.0-13.0) Eosinophils (%) (Auto) 1.3 % (0.0-8.0) Basophils (%) (Auto) 0.6 % (0.0-5.0) Neutrophils # (Auto) 4.0 K/uL (1.8-7.7) Lymphocytes # (Auto) 2.1 K/uL (1.0-4.8) Monocytes # (Auto) 0.4 K/uL (0.1-1.0) Eosinophils # (Auto) 0.09 K/uL (0.00-0.70) Basophils # (Auto) 0.04 K/uL (0.00-0.20) Absolute Immature Granulocyte (auto 0.02 K/uL (0-1) Nucleated Red Blood Cells 0.0 % (0.0-0.19) Sodium Level 139 mmol/L (136-145) Potassium Level 3.8 mmol/L (3.5-5.1) Chloride Level 105 mmol/L (101-111) Carbon Dioxide Level 25 mmol/L (21-32) Blood Urea Nitrogen 9 mg/dL (7-18) Creatinine 0.7 mg/dL (0.5-1.0) Glomerular Filtration Rate Calc 111 mL/min (>90) Random Glucose 95 mg/dL (70-105) Total Calcium 8.3 mg/dL (8.5-10.1) L Urine Color COLORLESS (YELLOW) Urine Appearance CLEAR (CLEAR) Urine pH 6.5 (5.0-8.0) Urine Specific Mathis 1.003 (1.001-1.031) Urine Protein NEGATIVE mg/dL (NEGATIVE) Urine Glucose (UA) NEGATIVE mg/dL (NEGATIVE) Urine Ketones NEGATIVE mg/dL (NEGATIVE) Urine Occult Blood NEGATIVE (NEGATIVE) Urine Nitrate NEGATIVE (NEGATIVE) Urine Bilirubin NEGATIVE mg/dL (NEGATIVE) Urine Urobilinogen 0.2 mg/dL (0.2-1.0) Urine Leukocyte Esterase NEGATIVE Jeannie/uL Labs Reviewed?: Yes Ultrasound Comment: PATIENT: BEE JUNIOR MR#: [id number] : 1980 SEX: F AGE: 44 LOCATION: [facility] ORDER 0 STATUS: ADM IN REPORT#: [id number] SERVICE 8 REASON: left leg pain h/o iiac vein stent ORDERING PHYSICIAN: AMANDA OKEEFE MD PROCEDURE: VENOUS UNI - US VENOUS DOPPLER UNILATERAL Exam Type: US VENOUS DOPPLER UNILATERAL Clinical Information: left leg pain h/o iiac vein stent Comparison: None Findings: The examination shows normal deep venous system. There is normal compressibility at all levels. There is no intraluminal clot. There is no occlusion. Adequate response is obtained on augmentation. Left iliac venous stent is seen, patent. Impression: No evidence of DVT. DICTATED BY: JENNY WOODS MD DATE: 12/30/241121 ELECTRONICALLY SIGNED BY: JENNY WOODS MD DATE: 12/30/24 112 ED Course ED Course Orders Procedure Category Date Status Time Cbc With Differential LAB 12/30/24 Complete 05:11 Basic Metabolic Panel LAB 12/30/24 Complete 05:11 Us Venous Doppler US 12/30/24 Resulted Unilateral 05:19 Morphine 2mg Syg PHA 12/30/24 Complete (Morphine 2mg Syg) 05:30 Hydromorphone 0.5mg PHA 12/30/24 Complete Syg (Dilaudid 0.5mg 07:00 Urinalysis Profile LAB 12/30/24 Complete 07:07 Hydromorphone 0.5mg PHA 12/30/24 Complete Syg (Dilaudid 0.5mg 10:00 Ondansetron 4mg Inj PHA 12/30/24 Complete (Zofran 4mg Inj) 10:00 Admit Orders ADM 12/30/24 Transmitted 10:31 Cardiology Consult CONPHYSVC 12/30/24 Transmitted 10:31 *Nursing CPOE 12/30/24 Transmitted Communication: 10:31 *Nursing CPOE 12/30/24 Transmitted Communication: 10:31 Ketorolac PHA 12/30/24 In Process Tromethamine 15mg/Ml 11:00 Us Arterial Unila Low US 12/30/24 Taken Ext Dupl 11:28 Pantoprazole 40mg Inj PHA 12/31/24 In Process (Protonix 40mg Inj 09:00 Current Medications Medications (Trade) Dose Ordered Sig/Carlos Route PRN Reason Start Time Stop Time Status Last Admin Dose Admin Hydromorphone HCl (DiLAUDid 0.5MG INJ) 0.5 mg ONCE ONCE IVP 12/30/24 07:00 12/30/24 07:01 DC 12/30/24 06:54 Hydromorphone HCl (DiLAUDid 0.5MG INJ) 0.5 mg ONCE ONCE IVP 12/30/24 10:00 12/30/24 10:01 DC 12/30/24 10:00 Morphine Sulfate (morPHINE 2MG SYG) 2 mg ONCE ONCE IVP 12/30/24 05:30 12/30/24 05:31 DC 12/30/24 05:34 Ondansetron HCl (zoFRAN 4MG INJ) 4 mg ONCE ONCE IVP 12/30/24 10:00 12/30/24 10:01 DC 12/30/24 09:59 Vital Signs Date Time Temp Pulse Resp B/P (MAP) Pulse Ox O2 Delivery O2 Flow Rate FiO2 12/30/24 11:30 98.2 68 16 119/51 99 Room Air* 0 21 12/30/24 07:56 98.6 68 14 103/67 97 Room Air* 0 21 12/30/24 06:50 63 14 121/84 98 Room Air* 0 21 12/30/24 05:28 98.6 68 14 123/77 100 Room Air* 0 21 12/30/24 05:01 98.6 70 20 129/80 100 We will perform diagnostic labs, advanced imaging and administer medications according to the patient's complaint. Once the results are available, will review and personally interpreted the labs to rule out any acute life-threa tening emergency the trach require immediate intervention and treatment. I will then re-evaluate the patient after treatment and diagnostic exams have return to determine whether the patient requires any further testing, can safely be discharged home or need further admission to hospital for additional treatment and evaluation. CBC BNP 7 are with a normal limits. Venous Doppler study of left lower extremities pending 6:20 a.m.-she stated that the morphine 2 mg did not relieve the pain. She indicated that she is allergic to aspirin and could not take the nonsteroidal agents Please note that the left iliac stent was placed by cardiology 7:00 a.m. patient was signed out to Dr. Oliver Cardenas Patient had cardiology consultation and was admitted to the hospital Medical Decision Making MDM MDM: Differential diagnosis: Left leg DVT, venous insufficiency, arterial embolus Rationale: Tests considered and ordered secondary to shared decision making include: labs, ECG and radiology Previous outside records reviewed: Old ER visits. Risk of complication and/or morbidity or mortality of patient management: None Medications-Per medication reconciliation Need for hospitalization: Patient does meet criteria for hospitalization. Need for emergency major/minor surgery: No There are no social concerns with this patient. Prescription drug management Prescriptions will include symptomatic care Patient's prior external medical records from other ER visits were reviewed by me as indicated. Prior testing and results from previous visits were reviewed. Prior tests were taken into account with medical decision making and resource utilization, independent historian/historians were used to obtain complete medical history. I independently interpreted the test that were performed, results were reviewed by me and considered findings on radiology if ordered. Medical management and examination interpretation discussions were had by me with other qualified healthcare professionals as indicated for the patient's care. Problem List Problem List: (1) Pain of left lower extremity (2) Iliac vein stenosis, left DX & DISP Disposition: Inpatient Departure Impression: Primary Impression: Pain of left lower extremity Additional Impression: Iliac vein stenosis, left Condition: Stable Additional Instructions: Patient was informed of all the diagnostic labs and procedures conducted in the emergency room today and demonstrated understanding of the results. I personally reviewed and interpreted all the diagnostic exams performed in the ER today. The patient will be admitted to the hospital for further treatment and evaluation. Disposition-admit to facility Condition-stable/guarded Course-uncertain at this time Pain status-decreased Assessment-exam unchanged Admission Certification- I certify that the patients status is appropriate and is based on my best clinical judgment and the patient's condition as documented in the medical records Referrals: MARICRUZ HARRIS MD (PCP) AMANDA OKEEFE MD Dec 30, 2024 05:14
[2024-12-30] MEDS: morPHINE 2 MG SYG IVP ONE ×2 (05:34→21:10)
[2024-12-30 05:39] LABS: BASOPHILS # (AUTO) 0.04 K/uL (0.00-0.20); BASOPHILS % (AUTO) 0.6 % (0.0-5.0); EOSINOPHILS # (AUTO) 0.09 K/uL (0.00-0.70); EOSINOPHILS % (AUTO) 1.3 % (0.0-8.0); HEMATOCRIT 38.2 % (36-48); IMMATURE GRANULOCYTE ABSOLUTE 0.02 K/uL (0-1); LYMPHOCYTES # (AUTO) 2.1 K/uL (1.0-4.8); LYMPHOCYTES % (AUTO) 32.1 % (21.0-51.0); MEAN CORPUSCULAR HEMOGLOBIN 29.6 pg (27.0-33.0); MONOCYTES # (AUTO) 0.4 K/uL (0.1-1.0); MONOCYTES % (AUTO) 6.4 % (3.0-13.0); NEUTROPHILS % (AUTO) 59.3 % (40.0-77.0); PLATELET COUNT (AUTO) 288 K/uL (130-400); RED BLOOD CELL COUNT(AUTO) 4.39 MIL/uL (4.00-5.50); RED CELL DISTRIBUTION WIDTH 13.2 % (11.0-15.5); WHITE BLOOD COUNT (AUTO) 6.7 K/uL (4.8-10.8)
[2024-12-30 05:42] LABS: CREATININE 0.7 mg/dL (0.5-1.0); POTASSIUM 3.8 mmol/L (3.5-5.1)
[2024-12-30] MEDS: hydroMORPHone 0.5 MG SYG (0.5MG/0.5ML) IVP ONE ×2 (06:54→10:00)
[2024-12-30 07:27] LABS: APPEARANCE,URINE CLEAR (CLEAR); BILIRUBIN,URINE NEGATIVE (NEGATIVE); COLOR,URINE COLORLESS (YELLOW); GLUCOSE, URINE (UA) NEGATIVE (NEGATIVE); KETONES,URINE NEGATIVE (NEGATIVE); LEUKOCYTE ESTERASE ,URINE NEGATIVE Leu/uL (NEGATIVE); NITRATE,URINE NEGATIVE (NEGATIVE); OCCULT BLOOD,URINE NEGATIVE (NEGATIVE); PH,URINE 6.5 (5.0-8.0); PROTEIN,URINE NEGATIVE (NEGATIVE); UROBILINOGEN,URINE 0.2 mg/dL (0.2-1.0)
[2024-12-30 07:28] LABS: ADD UA MICROSCOPIC NO
[2024-12-30] MEDS: ondanSETRON 4MG INJ IVP ONE (09:59)
--- NOTE | 2024-12-30 11:24 | NUR ---
DR GOVEA AT BEDSIDE FOR CARDIOLOGY CONSULT
--- NOTE | 2024-12-30 11:26 | HMCIMG ---
Exam Type: US VENOUS DOPPLER UNILATERAL Clinical Information: left leg pain h/o iiac vein stent Comparison: None Findings: The examination shows normal deep venous system. There is normal compressibility at all levels. There is no intraluminal clot. There is no occlusion. Adequate response is obtained on augmentation. Left iliac venous stent is seen, patent. Impression: No evidence of DVT.
--- NOTE | 2024-12-30 12:03 | CONS ---
[facility] CARDIOLOGY CONSULTATION NOTE Date Patient Seen: Dec 30, 2024 Time of Visit: 11:48 Reason for Consultation: [Left lower extremity pain ] History of Present Illness: 44-year-old female patient that follows up clinic with Dr. 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 The patient presented to the emergency department endorsing severe left lower extremity pain in the calf area externally onset24 hours. No prior history of injury to her left leg. Upon our assessment the patient's lower extremity appears to be well perfused, bounding pulses are noted, accompanied with tactile cutaneous allodynia, the patient's pain was alleviated with Dilaudid, currently with severity of 5/10, the patient underwent lower extremity venous Doppler ultrasounds (12/30/2024) no intraluminal clot or occlusion noted no evidence of DVT. Lab results, CBC unremarkable, creatinine 0.7. Blood pressure is 103/67 mmHg, with a pulse of 68 beats per minute. Of note she has a prior 2D echocardiogram from 11/09/2020 EF 55-60%, with no wall motion or valvular abnormalities. Cardiology was consulted for PVD assessment Past Medical History: [ Refer to chart] Past Surgical History: [ Refer to HPI] Family History: [Refer to HPI ] Social History: [Refer to HPI ] Habits: [Never] smoker. [Denies] alcohol consumption. [Denies] illicit drug use Review of Systems: Review of12 point system was negative set per HPI Physical Examination: GENERAL: [No acute distress.] HEAD: [Normal with no signs of head trauma.] EYES: [PERRLA, EOMI, conjunctiva and sclera normal.] ENT: [Hearing grossly intact, normal oropharynx.] NECK: [Supple without JVD. There is no tenderness, lymphadenopathy, or masses. N o thyromegaly. Normal carotid upstrokes without bruits.] LUNGS: [Clear breath sounds bilaterally. No wheezes, or rhonchi.] HEART: [Normal rate and rhythm. Normal S1 and S2 without mumurs, gallop or rub.] VASC: [Peripheral pulses +2 bilaterally.] ABD: [Bowel sounds normal, soft, nontender, no masses, no organomegaly. No audible bruits.] : [Not examined] LYMPH: [No lymphadenopathy noted.] EXT: [No clubbing, cyanosis or edema. Bounding pulses bilaterally throughout] SKIN: [No rashes or lesions noted.] NEURO: [Awake, alert, and oriented x3. No focal sensory or strength deficits noted.] Vital Signs (last 8hr) Date Time Temp Pulse Resp B/P (MAP) Pulse Ox O2 Delivery O2 Flow Rate FiO2 12/30/24 07:56 98.6 68 14 103/67 97 Room Air* 0 21 12/30/24 06:50 63 14 121/84 98 Room Air* 0 21 12/30/24 05:28 98.6 68 14 123/77 100 Room Air* 0 21 12/30/24 05:01 98.6 70 20 129/80 100 Laboratory: [ ] Hematology Labs: Test 12/30/24 05:26 Range/Units White Blood Count 6.7 4.8-10.8 K/uL Red Blood Count 4.39 4.00-5.50 MIL/uL Hemoglobin 13.0 12.0-16.0 g/dL Hematocrit 38.2 36-48 % Mean Corpuscular Volume 87.0 79-99 fL Mean Corpuscular Hemoglobin 29.6 27.0-33.0 pg Mean Corpuscular Hemoglobin Concent 34.0 32.0-36.0 g/dL Red Cell Distribution Width 13.2 11.0-15.5 % Platelet Count 288 130-400 K/uL Mean Platelet Volume 10.4 7.5-10.5 fL Immature Granulocyte % (Auto) 0.3 0-1 % Neutrophils (%) (Auto) 59.3 40.0-77.0 % Lymphocytes (%) (Auto) 32.1 21.0-51.0 % Monocytes (%) (Auto) 6.4 3.0-13.0 % Eosinophils (%) (Auto) 1.3 0.0-8.0 % Basophils (%) (Auto) 0.6 0.0-5.0 % Neutrophils # (Auto) 4.0 1.8-7.7 K/uL Lymphocytes # (Auto) 2.1 1.0-4.8 K/uL Monocytes # (Auto) 0.4 0.1-1.0 K/uL Eosinophils # (Auto) 0.09 0.00-0.70 K/uL Basophils # (Auto) 0.04 0.00-0.20 K/uL Absolute Immature Granulocyte (auto 0.02 0-1 K/uL Nucleated Red Blood Cells 0.0 0.0-0.19 % Chemistry Labs: Test 12/30/24 05:26 Range/Units Sodium Level 139 136-145 mmol/L Potassium Level 3.8 3.5-5.1 mmol/L Chloride Level 105 101-111 mmol/L Carbon Dioxide Level 25 21-32 mmol/L Blood Urea Nitrogen 9 7-18 mg/dL Creatinine 0.7 0.5-1.0 mg/dL Glomerular Filtration Rate Calc 111 >90 mL/min Random Glucose 95 70-105 mg/dL Total Calcium 8.3 L 8.5-10.1 mg/dL Diagnostics / Radiology: [Copy/Paste Echos/Imaging Report here] Hypertension History of venous insufficiency 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 syndrome status post stent placement of left common iliac and left external iliac on 05/13/2022 Plan: # May-Thurner syndrome Status post successful stent placement of the left common iliac and left external iliac vein with the use of a 16 mm x 100 mm Medtronic venous self expanding stent The patient presented to the emergency department endorsing left lower extremity pain mostly on her right side and calf area She denies any claudication or exertional pain to her lower extremities, pulses are present and bounding in appear to be well perfused Venous arterial Doppler ultrasounds revealed no evidence of DVT at this time Positive Doppler pulses on DP/PT and LT of left lower extremity Currently severity of her pain is 5/10 after receiving Dilaudid Due to the above-mentioned findings stat lower extremity arterial Doppler revealed biphasic waveforms with no hemodynamically significant stenosis At this time her symptoms gregory not appear to be 2/2 venous or arterial disease. She can be DCed from the CV standpoint with close outpt Cardiology follow up 1-2 weeks post DC with Dr. Arroyo Will provide short course fo tramadol 50mg Q6 PRN pain. No indication for further CV testing at this time. Thank you for this consult cardiology will sign off at this time. Norm casper MD ATTESTATION BY PHYSICIAN I have seen and examined the patient, reviewed the above documentation, pa rticipated in medical decision making, made necessary modifications, and agree with the treatment plan as documented by my mid-level provider above. MD JEFERSON Prakash JAMES R MD Dec 30, 2024 12:03
[2024-12-30] MEDS: ketOROlac 15MG/ML VIAL (15MG/ML) IV PRN (16:42)
--- NOTE | 2024-12-30 18:50 | NUR ---
DR GOVEA CAME BACK TO TALK TO PT REGARDING HER ARTERIAL DUPLEX.HE IS ADVISING HER TO BE DISCHARGED AND FOLOW UP WITH DR VELEZ IN 1 WEEK. HE ALSO PRESCRIBED PAINRELIEF FOR TO GO.
--- NOTE | 2024-12-30 20:51 | HP ---
HISTORY OF PRESENT ILLNESS: The patient came to the Emergency Room complaining of severe left leg pain below the knee since yesterday. There is no recent history of trauma. No reports of any ecchymosis or paleness of the left lower extremity. She has a history of May-Thurner syndrome with a stent placement 3 years ago. ALLERGIES: He denies any drug allergies. PAST MEDICAL HISTORY: Hypertension, May-Thurner syndrome. REVIEW OF SYSTEMS: Having no fever, chills, seizures or loss of consciousness. No chest pain or palpitations. No cough, wheeze or rhonchi. No abdominal pain. No nausea, vomiting, diarrhea. No dysuria, urgency, frequency. No rashes, petechiae or ecchymoses. No hallucinations, delusions, no suicidal ideation. PHYSICAL EXAMINATION: GENERAL: She is awake, alert, oriented to person, time, and place, not in distress. VITAL SIGNS: Blood pressure 129/80, pulse 70, respiratory rate 20, temperature 98.6. HEENT: Normocephalic, atraumatic. LUNGS: Clear to auscultation. HEART: S1, S2 are distant. ABDOMEN: Soft, nontender, no masses. EXTREMITIES: Popliteal pulses are decreased. Pedal pulses are present. LABORATORY DATA: WBC count 6.7, hemoglobin 13, platelets 288. Sodium 139, potassium 3.8, BUN 9, creatinine 0.7. Urinalysis within normal limits. Venous Doppler ultrasound shows no evidence of DVT. Arterial Doppler ultrasound results are pending. ASSESSMENT AND PLAN: * Left lower extremity pain. Cardiology consultation was requested. Doppler ultrasound pending results. * Continue with Toradol 15 mg IV every 8 hours p.r.n. The patient is not improving with the use of narcotics. * Hypertension. Resume home medications. Reassess with results of tests. TID: [id number] RECEIPT: [id number]
[2024-12-31] VITALS: BP 118/75; PULSE 88; RESP 18; TEMP 97.9
[2024-12-31 00:03] VITALS: O2SAT 98
[2024-12-31] MEDS ORDERED: METO25 PO (00:56)
[2024-12-31] MEDS ORDERED: RIME75TA PO (00:56)
[2024-12-31 04:00] VITALS: BP 103/58; PULSE 89; RESP 18; TEMP 98
[2024-12-31 07:46] VITALS: BP 97/59; PULSE 82; RESP 18; TEMP 98.2
[2024-12-31] MEDS: PANTOPrazole 40 MG/VIAL IVP SCH (08:09)
--- NOTE | 2024-12-31 10:12 | NUR ---
DISCHARGE PIV DC'D AND BRACELETS REMOVED. REVIEWED DISCHARGE INSTRUCTIONS, MEDICATIONS, AND FOLLOW UP APPOINTMENT WITH DR HARRIS ON FRIDAY. ALL QUESTIONS ANSWERED AT THIS TIME. PT LEAVING VIA WHEELCHAIR.
--- NOTE | 2024-12-31 10:19 | HMCIMG ---
ULTRASOUND ARTERIAL DUPLEX LEFT LOWER EXTREMITY, UNILATERAL INDICATION: Status post stent? TECHNIQUE: Routine grayscale, color Doppler, and power Doppler ultrasound of the left lower extremity arteries were obtained. COMPARISON: None FINDINGS: Velocities in cm/sec FAST FOOD ATTENDANT: 121 SFA: Prox 77, Mid 73, Distal 71 Popliteal 50 proximally and 72 distally Anterior Tibial 20 distally Posterior Tibial 51 Dorsalis Pedis 32 Triphasic flow along the left lower extremity arterial system except for biphasic along the distal left anterior tibial artery as well as along the left dorsalis pedis artery. Mild calcific plaque scattered along the left lower extremity arterial system [place]mos[place]. Stent not demonstrated. IMPRESSION: No evidence for high-grade flow-rate limiting stenosis. Parameters as reported.
== END 2024-12-31 10:20 | disposition home or self-care (01) ==
LOC: EDH 05:00 → INTOOBSV 10:31 → EDHIP 10:31 → 4AH 12-31 00:08
PROVIDERS: ADMIT Internal Medicine; ATTEND Internal Medicine
DX: I87.1 Compression of vein (principal); I87.2 Venous insufficiency (chronic) (peripheral); I10 Essential (primary) hypertension; K21.9 Gastro-esophageal reflux disease without esophagitis; G43.909 Migraine, unspecified, not intractable, without status migrainosus; F19.90 Other psychoactive substance use, unspecified, uncomplicated; K44.9 Diaphragmatic hernia without obstruction or gangrene; Z79.899 Other long term (current) drug therapy; Z91.018 Allergy to other foods
CPT/HCPCS: 99285; 96374; 93971; 93926; 96375 ×3; 80048; 85025; 81003; 36415; 96376 ×2; J1885 ×2; J1171 ×2; J2270 ×2; J2405; J2470; G0378